=== PATIENT | male | born 1965 | race Caucasian/White ===

== ENCOUNTER 2017-08-22 14:30 | Inpatient (IN) | payer MEDICARE, MEDICAID ==
[~2017-08-22] VITALS: Ht 177.8 cm; Wt 74.6 kg
[~2017-08-22 14:30] MED LIST: AMBIEN 10MG10 MG PO; AMITRIPTYLINE H25 M1 PO; AMITRIPTYLINE H50 M1 PO; AMLOPIDINE PO; AMOXICILLIN 8751 TAB PO; AMOXICILLIN875 MG PO; ARANESP IJ; ASPIRIN 32325 MG/TAB PO; ATIVAN 2MG/ML2 MG/ML IJ; ATIVAN 2MG2 MG PO; ATIVAN2 MG PO; AURYXIA1 GM PO; BACTRIM DS 8001 TAB PO; CATAPRES 0.1MG0.1 MG PO; CATAPRES PO; CATAPRES-T0.3 MG/24 TD; COLACE 100100 MG/CAP PO; COREG 25MG25 MG/TAB PO; COREG25 MG PO; COZAAR 50MG50 MG/TAB PO; COZAAR100 MG PO; DIALYVITE PO; DIOVAN320 MG PO; EPOGEN MU IJ; EPOGEN2000 U/ML IV; FOLIC ACID 11 MG/TA1 PO; FOLIC ACID1 MG PO; FOSRENOL PO; FUROSEMIDE PO; GABAPENTIN100 M1 PO; LASIX 40MG TABL40 MG PO; LASIX 80MG TABL80 MG PO; LEVAQUIN 5500 MG/TA1 PO; METOLAZONE5 MG PO; NEPHROCAP PO; NEURONTIN100 MG/CAP PO; NORCO 325 MG-101 TAB PO; NORCO 325 MG-7.1 TAB PO; NORVASC 10MG10 MG PO; NORVASC10 MG PO; OXYCONTIN 20MG20 MG PO; PERCOCET 325 MG1 TAB PO; PERCOCET 650 MG1 TAB PO; PHENERGAN 25 TA25 MG PO; PHOS LO; PHOS LO PO; PHOSLO667 MG PO; PLAVIX 75MG TAB75 MG PO; PRILOSEC 20MG20 MG PO; PRINIVIL10 MG PO; RENA-VITE1 TAB PO; RENVELA800 MG PO; RITE AID BRAND650 MG PO; ROXICODONE15 MG PO; ROXICODONE30 MG PO; SENSIPAR PO; SENSIPAR30 MG PO; SODIUM BICARB; SODIUM BICARB PO; TYLENOL 500MG500 MG PO; VIA IJ; XALATAN EYE DROPS OD; ZEMPLAR0.002 MG/M IV; ZEMPLAR1 MCG PO; ZOLOFT 100MG100 MG PO; ZOLOFT 50MG50 MG PO; ZOLOFT100 MG PO
[2017-08-22 15:05] VITALS: BP 142/66; PULSE 69; TEMP 97.3
[2017-08-22] MEDS ORDERED: ATIVAN2 MG PO (16:39)
[2017-08-22] MEDS ORDERED: AURYXIA1 GM PO (16:42)
[2017-08-22] MEDS ORDERED: CALPHRON667 MG PO ×2 (16:43→16:44)
[2017-08-22] MEDS ORDERED: PRILOSEC 20MG20 MG PO (16:46)
[2017-08-22] MEDS ORDERED: NEPHROCAP PO (16:46)
[2017-08-22] MEDS ORDERED: ROXICODONE15 MG PO (16:47)
[2017-08-22] MEDS ORDERED: SENNA8.6 MG PO (16:48)
[2017-08-22] MEDS ORDERED: FOLIC ACID 11 MG/TA1 PO (16:49)
[2017-08-22] MEDS ORDERED: ZOFRAN ODT4 MG PO (16:49)
[2017-08-22] MEDS ORDERED: XALATAN EYE DROPS OU (16:50)
[2017-08-22] MEDS ORDERED: SENSIPAR60 MG PO (16:51)
[2017-08-22] MEDS ORDERED: ZOLOFT 100MG100 MG PO (16:52)
[2017-08-22 17:14] LABS: BASO % 0.6 % (0.0-2.0); EOS # 0.1 (0.0-0.7); EOS % 1.7 % (0-4.0); GRAN # 2.8 (1.4-6.5); GRAN % 61.1 % (42.2-75.2); LYMPH % 22.3 % (20.0-51.0); MEAN CELL VOLUME 100 fl (80.0-100.0); MEAN CORPUSCULAR HGB CONC 31 g/dl (33.0-37.0); MONO # 0.6 (0.1-0.6); MONO % 13.9 % (1.7-9.3); PLATELET COUNT 88 K/mm3 (130-400); RED BLOOD COUNT 2.87 M/mm3 (4.20-5.60); WHITE BLOOD COUNT 4.6 K/mm3 (4.8-10.8)
[2017-08-22 17:15] LABS: HEMATOCRIT 28.8 % (42.0-52.0); MEAN CORPUSCULAR HEMOGLOBIN 31 pg (27.0-31.0)
[2017-08-22 17:17] LABS: INR 1.3 (0.8-3.0); PROTHROMBIN TIME 14.1 SECONDS (9.7-12.8)
[2017-08-22 17:19] LABS: PARTIAL THROMBOPLASTIN TIME 43.6 SECONDS (26.0-37.0)
[2017-08-22 17:25] LABS: ADJUSTED CALCIUM 9.4 mg/dL (8.4-10.2); ALBUMIN 2.3 gm/dL (3.5-5.0); BILIRUBIN,TOTAL 0.7 mg/dL (0.0-1.0); POTASSIUM 4.8 mmol/L (3.4-5.0); TOTAL PROTEIN 7.6 gm/dL (6.4-8.2)
[2017-08-22 17:27] LABS: CREATININE, serum 4.33 mg/dL (0.66-1.25)
[2017-08-22] MEDS ORDERED: CARAFATE 1GM1 G PO (18:16)
[2017-08-22 18:27] VITALS: BP 158/75; PULSE 79; TEMP 98.6
[2017-08-22 22:00] VITALS: BP 141/58; PULSE 77; TEMP 99.4
[2017-08-23] VITALS (13 sets, daily range): BP systolic 87–150; BP diastolic 54–86; PULSE 55–84; TEMP 97.3–99.1
[2017-08-23 06:58] LABS: MEAN CELL VOLUME 100 fl (80.0-100.0); MEAN CORPUSCULAR HGB CONC 31 g/dl (33.0-37.0); MEAN PLATELET VOLUME 10.1 fl (7.4-10.4); PLATELET COUNT 94 K/mm3 (130-400); RED BLOOD COUNT 2.81 M/mm3 (4.20-5.60); WHITE BLOOD COUNT 4.7 K/mm3 (4.8-10.8)
[2017-08-23 07:07] LABS: HEMOGLOBIN 8.8 g/dl (13.5-18.0); MEAN CORPUSCULAR HEMOGLOBIN 31 pg (27.0-31.0)
[2017-08-23 07:08] LABS: ALBUMIN 2.2 gm/dL (3.5-5.0); CALCIUM 8.2 mg/dL (8.4-10.2); PHOSPHOROUS 2.6 mg/dL (2.5-4.5)
[2017-08-23 07:14] LABS: CREATININE, serum 4.97 mg/dL (0.66-1.25)
[2017-08-23 16:47] LABS: INFLUENZA A NEGATIVE; INFLUENZA B NEGATIVE
[2017-08-24] VITALS (7 sets, daily range): BP systolic 117–146; BP diastolic 54–66; PULSE 64–77; TEMP 97.7–98.9
[2017-08-24 06:39] LABS: HEMATOCRIT 27.6 % (42.0-52.0); HEMOGLOBIN 8.6 g/dl (13.5-18.0)
[2017-08-25 06:17] VITALS: BP 124/56; PULSE 70; TEMP 97.8
[2017-08-25 07:33] LABS: MEAN CELL VOLUME 101 fl (80.0-100.0); MEAN CORPUSCULAR HGB CONC 31 g/dl (33.0-37.0); MEAN PLATELET VOLUME 9.4 fl (7.4-10.4); PLATELET COUNT 84 K/mm3 (130-400); RED BLOOD COUNT 2.78 M/mm3 (4.20-5.60); WHITE BLOOD COUNT 4.3 K/mm3 (4.8-10.8)
[2017-08-25 07:38] LABS: HEMOGLOBIN 8.7 g/dl (13.5-18.0); MEAN CORPUSCULAR HEMOGLOBIN 31 pg (27.0-31.0)
[2017-08-25 07:45] LABS: ALBUMIN 2.1 gm/dL (3.5-5.0); CALCIUM 7.8 mg/dL (8.4-10.2); PHOSPHOROUS 3.9 mg/dL (2.5-4.5); POTASSIUM 4.8 mmol/L (3.4-5.0)
[2017-08-25 07:56] LABS: CREATININE, serum 5.31 mg/dL (0.66-1.25)
[2017-08-25 09:47] VITALS: BP 117/57; PULSE 69; TEMP 98.9
[2017-08-25 17:15] VITALS: BP 133/61; PULSE 88; TEMP 99.4
[2017-08-25 22:45] VITALS: BP 119/55; PULSE 80; TEMP 99.6
[2017-08-26 02:01] VITALS: BP 137/62; PULSE 80; TEMP 97.9
[2017-08-26 06:39] VITALS: BP 133/56; PULSE 72; TEMP 97.6
[2017-08-26 09:10] VITALS: BP 129/54; PULSE 72; TEMP 98.2
[2017-08-26 14:05] VITALS: BP 137/77; PULSE 70; TEMP 98.1
[2017-08-26 18:38] VITALS: BP 123/55; PULSE 66; TEMP 98.7
[2017-08-26 20:48] VITALS: BP 118/48; PULSE 62; TEMP 98.6
[2017-08-27 03:15] VITALS: BP 130/59; PULSE 70; TEMP 98.9
[2017-08-27 05:41] VITALS: BP 123/65; PULSE 67; TEMP 98.9
[2017-08-27 09:30] VITALS: BP 139/71; PULSE 77; TEMP 97.6
[2017-08-27 12:32] VITALS: BP 119/61; PULSE 71
[2017-08-27 17:32] VITALS: BP 139/64; PULSE 72; TEMP 97.5
[2017-08-27 22:11] VITALS: BP 132/68; PULSE 71; TEMP 98.5
[2017-08-28 05:38] VITALS: BP 140/66; PULSE 70; TEMP 98.3
[2017-08-28 07:04] LABS: HEMATOCRIT 26.7 % (42.0-52.0); HEMOGLOBIN 8.4 g/dl (13.5-18.0); MEAN CELL VOLUME 99 fl (80.0-100.0); MEAN CORPUSCULAR HEMOGLOBIN 31 pg (27.0-31.0); MEAN CORPUSCULAR HGB CONC 32 g/dl (33.0-37.0); MEAN PLATELET VOLUME 9.6 fl (7.4-10.4); PLATELET COUNT 89 K/mm3 (130-400); RED BLOOD COUNT 2.71 M/mm3 (4.20-5.60); WHITE BLOOD COUNT 4.7 K/mm3 (4.8-10.8)
[2017-08-28 07:15] LABS: CALCIUM 7.6 mg/dL (8.4-10.2); PHOSPHOROUS 4.6 mg/dL (2.5-4.5); POTASSIUM 4.9 mmol/L (3.4-5.0)
[2017-08-28 07:36] LABS: CREATININE, serum 6.01 mg/dL (0.66-1.25)
[2017-08-28 14:09] VITALS: BP 140/66; PULSE 76; TEMP 98.6
[2017-08-28 17:19] VITALS: BP 151/65; PULSE 79; TEMP 99.3
[2017-08-28 22:00] VITALS: BP 130/60; PULSE 72; TEMP 98.6
[2017-08-29] VITALS (12 sets, daily range): BP systolic 109–147; BP diastolic 43–66; PULSE 58–70; TEMP 97.5–98.7
[2017-08-29 08:07] LABS: MEAN CELL VOLUME 99 fl (80.0-100.0); MEAN CORPUSCULAR HGB CONC 31 g/dl (33.0-37.0); MEAN PLATELET VOLUME 9.9 fl (7.4-10.4); PLATELET COUNT 93 K/mm3 (130-400); RED BLOOD COUNT 3.17 M/mm3 (4.20-5.60)
[2017-08-29 08:11] LABS: HEMATOCRIT 31.5 % (42.0-52.0); HEMOGLOBIN 9.8 g/dl (13.5-18.0); MEAN CORPUSCULAR HEMOGLOBIN 31 pg (27.0-31.0)
[2017-08-29 08:20] LABS: ALBUMIN 2.3 gm/dL (3.5-5.0); CALCIUM 7.8 mg/dL (8.4-10.2); PHOSPHOROUS 3.7 mg/dL (2.5-4.5); POTASSIUM 4.1 mmol/L (3.4-5.0)
[2017-08-29 08:22] LABS: CREATININE, serum 4.11 mg/dL (0.66-1.25)
[2017-08-29 08:32] LABS: VANCOMYCIN TROUGH 22.3 ug/mL (7.00-20.00)
[2017-08-30 01:51] VITALS: BP 120/59; PULSE 57; TEMP 97.9
[2017-08-30 06:05] VITALS: BP 145/67; PULSE 57; TEMP 97.5
[2017-08-30 07:01] LABS: MEAN CELL VOLUME 100 fl (80.0-100.0); MEAN CORPUSCULAR HGB CONC 31 g/dl (33.0-37.0); MEAN PLATELET VOLUME 10.1 fl (7.4-10.4); PLATELET COUNT 86 K/mm3 (130-400); RED BLOOD COUNT 2.78 M/mm3 (4.20-5.60); WHITE BLOOD COUNT 4.2 K/mm3 (4.8-10.8)
[2017-08-30 07:05] LABS: HEMATOCRIT 27.7 % (42.0-52.0); HEMOGLOBIN 8.7 g/dl (13.5-18.0); MEAN CORPUSCULAR HEMOGLOBIN 31 pg (27.0-31.0)
[2017-08-30 07:06] LABS: ALBUMIN 2.1 gm/dL (3.5-5.0); CALCIUM 7.5 mg/dL (8.4-10.2); POTASSIUM 4.7 mmol/L (3.4-5.0)
[2017-08-30 07:15] LABS: CREATININE, serum 5.07 mg/dL (0.66-1.25)
[2017-08-30 07:22] LABS: PHOSPHOROUS 5.8 mg/dL (2.5-4.5)
[2017-08-30] MEDS ORDERED: VANCOCIN HCL1 GM IV ×2 (10:58→14:49)
[2017-08-30 13:14] VITALS: BP 145/67; PULSE 57; TEMP 97.5
[2017-08-30 14:08] VITALS: BP 145/67; PULSE 57; TEMP 97.5
[2017-09-03] MEDS ORDERED: PRILOSEC 20MG20 MG PO (09:37)
[2017-09-03] MEDS ORDERED: FOLIC ACID 11 MG/TA1 PO (09:38)
== END 2017-08-30 16:00 | DRG 856 ==
LOC: SURG 14:30
PROVIDERS: Internal Medicine Nephrology; Orthopaedic Surgery; Physician Assistant
PROC: 5A1D70Z Performance of Urinary Filtration, Intermittent, Less than 6 Hours Per Day (ICD-10-PCS; 2017-08-23)
PROC: 0QDB0ZZ Extraction of Right Lower Femur, Open Approach (ICD-10-PCS; principal; 2017-08-23 13:15)
PROC: 0QDB0ZZ Extraction of Right Lower Femur, Open Approach (ICD-10-PCS; 2017-08-29)
DX: T81.4XXA Infection following a procedure, initial encounter (principal); N18.6 End stage renal disease; I12.0 Hypertensive chronic kidney disease with stage 5 chronic kidney disease or end stage renal disease; E44.0 Moderate protein-calorie malnutrition; B95.62 Methicillin resistant Staphylococcus aureus infection as the cause of diseases classified elsewhere; S72.451 Displaced supracondylar fracture without intracondylar extension of lower end of right femur; E11.22 Type 2 diabetes mellitus with diabetic chronic kidney disease; Z99.2 Dependence on renal dialysis; D63.1 Anemia in chronic kidney disease; Z89.511 Acquired absence of right leg below knee; E11.42 Type 2 diabetes mellitus with diabetic polyneuropathy; F17.220 Nicotine dependence, chewing tobacco, uncomplicated; E21.2 Other hyperparathyroidism; D89.0 Polyclonal hypergammaglobulinemia
CPT/HCPCS: A9284; J0881; J1100; J1170; J1650; J2270; J2405; J2704; J3010; J3370; J7030; J7050; J7060

== ENCOUNTER 2017-10-25 02:17 | Inpatient (IN) | payer MEDICARE, MEDICAID ==
[~2017-10-25] VITALS: Ht 180.3 cm; Wt 66.5 kg
[~2017-10-25 02:17] MED LIST changes: +CALPHRON667 MG PO; +CARAFATE 1GM1 G PO; +SENNA8.6 MG PO; +SENSIPAR60 MG PO; +VANCOCIN HCL1 GM IV; +XALATAN EYE DROPS OU; +ZOFRAN ODT4 MG PO
[2017-10-25 03:55] LABS: MEAN CELL VOLUME 98 fl (80.0-100.0); MEAN CORPUSCULAR HGB CONC 31 g/dl (33.0-37.0); MEAN PLATELET VOLUME 9.8 fl (7.4-10.4); PLATELET COUNT 70 K/mm3 (130-400); RED BLOOD COUNT 3.07 M/mm3 (4.20-5.60); REDCELL DISTRIBUTION WIDTH-CV 18.4 % (11.5-14.5)
[2017-10-25 03:57] LABS: HEMATOCRIT 30.1 % (42.0-52.0); HEMOGLOBIN 9.4 g/dl (13.5-18.0); MEAN CORPUSCULAR HEMOGLOBIN 31 pg (27.0-31.0)
[2017-10-25 04:00] LABS: INFLUENZA A POSITIVE; INFLUENZA B NEGATIVE
[2017-10-25 04:01] LABS: INR 1.4 (0.8-3.0); PROTHROMBIN TIME 16.8 SECONDS (9.7-12.8)
[2017-10-25 04:04] LABS: PARTIAL THROMBOPLASTIN TIME 39.9 SECONDS (26.0-37.0)
[2017-10-25 04:06] LABS: ALBUMIN 2.7 gm/dL (3.5-5.0); BILIRUBIN,TOTAL 0.7 mg/dL (0.0-1.0); CALCIUM 8.7 mg/dL (8.4-10.2); MAGNESIUM 1.9 mg/dL (1.6-2.3); PHOSPHOROUS 6.9 mg/dL (2.5-4.5); POTASSIUM 3.7 mmol/L (3.4-5.0); TOTAL PROTEIN 8.1 gm/dL (6.4-8.2)
[2017-10-25 04:07] LABS: BAND 2 % (0-10); BASOPHIL 4 % (0-2); EOSINOPHIL 4 % (0-4); LYMPHOCYTE 26 % (20.0-51.0); NEUTROPHILS 56 % (42.0-75.2); ROULEAUX 2+; TARGET CELLS 1+; TOXIC GRANULATION PRESENT
[2017-10-25 04:08] LABS: ANISOCYTOSIS 1+; HYPOCHROMIA 1+; MICROCYTOSIS 1+; POIKILOCYTOSIS 1+; POLYCHROMASIA 1+
[2017-10-25 04:09] LABS: CREATININE, serum 5.55 mg/dL (0.66-1.25)
[2017-10-25 04:17] LABS: TROPONIN-I 0.027 ng/mL (0.000-0.034)
[2017-10-25] MEDS ORDERED: TYLENOL 325MG325 MG PO (04:40)
[2017-10-25] MEDS ORDERED: XALATAN EYE DROPS OU (04:41)
[2017-10-25] MEDS ORDERED: ZITHROMAX500 M2 PO (04:42)
[2017-10-25] MEDS ORDERED: ZOLOFT 100MG100 MG PO (04:43)
[2017-10-25] MEDS ORDERED: ZOFRAN 4MG T4 MG/TAB PO (04:43)
[2017-10-25] MEDS ORDERED: ATIVAN 1MG T1 MG/TAB PO (06:19)
[2017-10-25] MEDS ORDERED: PROTONIX 40MG T40 MG PO (06:23)
[2017-10-25] MEDS ORDERED: DAZIDOX20 MG PO (06:24)
[2017-10-25 07:01] VITALS: BP 117/56; PULSE 88; TEMP 98.7
[2017-10-25 16:40] VITALS: BP 97/46; PULSE 59; TEMP 99
[2017-10-25 21:23] VITALS: BP 101/43; PULSE 71; TEMP 98.2
[2017-10-26 00:02] VITALS: BP 91/41; PULSE 79; TEMP 98.3
[2017-10-26 04:40] VITALS: BP 92/36; PULSE 115; TEMP 98
[2017-10-26 06:36] LABS: MEAN CELL VOLUME 100 fl (80.0-100.0); MEAN CORPUSCULAR HGB CONC 31 g/dl (33.0-37.0); MEAN PLATELET VOLUME 10.3 fl (7.4-10.4); PLATELET COUNT 67 K/mm3 (130-400); RED BLOOD COUNT 3.01 M/mm3 (4.20-5.60); REDCELL DISTRIBUTION WIDTH-CV 18.3 % (11.5-14.5)
[2017-10-26 06:39] LABS: HEMOGLOBIN 9.3 g/dl (13.5-18.0); MEAN CORPUSCULAR HEMOGLOBIN 31 pg (27.0-31.0)
[2017-10-26 06:44] LABS: CALCIUM 8.3 mg/dL (8.4-10.2); POTASSIUM 3.8 mmol/L (3.4-5.0)
[2017-10-26 07:11] LABS: CREATININE, serum 4.26 mg/dL (0.66-1.25)
[2017-10-26 08:22] VITALS: BP 79/37; PULSE 65; TEMP 98.4
[2017-10-26 08:23] LABS: ANISOCYTOSIS 3+; BAND 58 % (0-10); LYMPHOCYTE 19 % (20.0-51.0); METAMYELOCYTE 1 % (0-0); NEUTROPHILS 21 % (42.0-75.2); OVALOCYTES 1+; PLATELET ESTIMATE DECREASED (NORMAL)
[2017-10-26] MEDS ORDERED: VENTOLIN0.09 MG IH ×2 (10:10)
[2017-10-26] MEDS ORDERED: DAZIDOX20 MG PO (10:11)
[2017-10-26] MEDS ORDERED: TAMIFLU30 MG PO (10:11)
== END 2017-10-26 11:25 | DRG 193 ==
LOC: COL.ER 02:17 → MEDICAL 05:04
PROVIDERS: Emergency Medicine; Internal Medicine
PROC: 5A1D70Z Performance of Urinary Filtration, Intermittent, Less than 6 Hours Per Day (ICD-10-PCS; principal; 2017-10-25)
DX: J09.X2 Influenza due to identified novel influenza A virus with other respiratory manifestations (principal); N18.6 End stage renal disease; I12.0 Hypertensive chronic kidney disease with stage 5 chronic kidney disease or end stage renal disease; L03.115 Cellulitis of right lower limb; Z89.611 Acquired absence of right leg above knee; E11.22 Type 2 diabetes mellitus with diabetic chronic kidney disease; Z99.2 Dependence on renal dialysis; D63.1 Anemia in chronic kidney disease; E11.42 Type 2 diabetes mellitus with diabetic polyneuropathy; Z87.891 Personal history of nicotine dependence; G89.29 Other chronic pain; F32.9 Major depressive disorder, single episode, unspecified
CPT/HCPCS: J0692; J3370; J7050

== ENCOUNTER 2017-11-01 13:40 | Inpatient (IN) | payer MEDICARE, MEDICAID ==
[~2017-11-01] VITALS: Ht 180.3 cm; Wt 71.9 kg
[~2017-11-01 13:40] MED LIST changes: +ATIVAN 1MG T1 MG/TAB PO; +DAZIDOX20 MG PO; +PROTONIX 40MG T40 MG PO; +TAMIFLU30 MG PO; +TYLENOL 325MG325 MG PO; +VENTOLIN0.09 MG IH; +ZITHROMAX500 M2 PO; +ZOFRAN 4MG T4 MG/TAB PO
[2017-11-01 17:35] LABS: HEMATOCRIT 23.6 % (42.0-52.0); HEMOGLOBIN 7.5 g/dl (13.5-18.0); INR 1.6 (0.8-3.0); MEAN CELL VOLUME 95 fl (80.0-100.0); MEAN CORPUSCULAR HEMOGLOBIN 30 pg (27.0-31.0); MEAN CORPUSCULAR HGB CONC 32 g/dl (33.0-37.0); MEAN PLATELET VOLUME 10.1 fl (7.4-10.4); PLATELET COUNT 68 K/mm3 (130-400); PROTHROMBIN TIME 18.7 SECONDS (9.7-12.8); RED BLOOD COUNT 2.49 M/mm3 (4.20-5.60); REDCELL DISTRIBUTION WIDTH-CV 18.4 % (11.5-14.5)
[2017-11-01 17:40] VITALS: BP 116/58; PULSE 54; TEMP 97.9
[2017-11-01 17:42] LABS: ANISOCYTOSIS 2+; BAND 2 % (0-10); LYMPHOCYTE 26 % (20.0-51.0); NEUTROPHILS 62 % (42.0-75.2); PLATELET ESTIMATE DECREASED (NORMAL)
[2017-11-01 17:46] LABS: CALCIUM 8.1 mg/dL (8.4-10.2); CREATININE, serum 2.24 mg/dL (0.66-1.25); POTASSIUM 3.3 mmol/L (3.4-5.0)
[2017-11-01] MEDS ORDERED: ELIQUIS 2.5 PO (17:47)
[2017-11-01] MEDS ORDERED: VENTOLIN0.09 MG IH (17:47)
[2017-11-01] MEDS ORDERED: PACERONE100 MG PO (17:48)
[2017-11-01] MEDS ORDERED: PHOS LO (17:49)
[2017-11-01] MEDS ORDERED: NITROSTAT0.4 MG/TAB SL (17:50)
[2017-11-01] MEDS ORDERED: ASPIRIN 81M81 MG/TA2 PO (17:51)
[2017-11-01] MEDS ORDERED: RANEXA 500MG T500 MG PO (17:52)
[2017-11-01] MEDS ORDERED: TOPROL XL 25MG25 MG PO (17:54)
[2017-11-01] MEDS ORDERED: TAMIFLU30 MG PO (17:55)
[2017-11-01] MEDS ORDERED: DAZIDOX20 MG PO (17:57)
[2017-11-01 22:58] LABS: INFLUENZA A NEGATIVE; INFLUENZA B NEGATIVE
[2017-11-02] VITALS (8 sets, daily range): BP systolic 96–121; BP diastolic 50–71; PULSE 47–87; TEMP 97.2–98.2
[2017-11-02 08:10] LABS: MEAN CELL VOLUME 94 fl (80.0-100.0); MEAN CORPUSCULAR HGB CONC 32 g/dl (33.0-37.0); MEAN PLATELET VOLUME 10.2 fl (7.4-10.4); PLATELET COUNT 73 K/mm3 (130-400); RED BLOOD COUNT 2.86 M/mm3 (4.20-5.60); REDCELL DISTRIBUTION WIDTH-CV 19.1 % (11.5-14.5)
[2017-11-02 08:14] LABS: HEMATOCRIT 26.9 % (42.0-52.0); HEMOGLOBIN 8.5 g/dl (13.5-18.0); MEAN CORPUSCULAR HEMOGLOBIN 30 pg (27.0-31.0)
[2017-11-02 08:24] LABS: ALBUMIN 2.5 gm/dL (3.5-5.0); CALCIUM 8.1 mg/dL (8.4-10.2); CREATININE, serum 2.9 mg/dL (0.66-1.25); PHOSPHOROUS 3.6 mg/dL (2.5-4.5); POTASSIUM 3.7 mmol/L (3.4-5.0)
[2017-11-02 11:21] LABS: BAND 26 % (0-10); EOSINOPHIL 8 % (0-4); LYMPHOCYTE 28 % (20.0-51.0); NEUTROPHILS 38 % (42.0-75.2); PLATELET ESTIMATE DECREASED (NORMAL)
[2017-11-02 15:08] LABS: ALBUMIN 2.3 gm/dL (3.5-5.0); BILIRUBIN,TOTAL 0.7 mg/dL (0.0-1.0); CALCIUM 8.1 mg/dL (8.4-10.2); CREATININE, serum 1.72 mg/dL (0.66-1.25); MAGNESIUM 1.9 mg/dL (1.6-2.3); PHOSPHOROUS 2.4 mg/dL (2.5-4.5); POTASSIUM 3.5 mmol/L (3.4-5.0); TOTAL PROTEIN 7.3 gm/dL (6.4-8.2)
[2017-11-02 15:15] LABS: PRE ALBUMIN 4.5 mg/dL (17.6-36.0)
[2017-11-03 00:50] VITALS: BP 127/66; PULSE 63; TEMP 97.4
[2017-11-03 04:40] VITALS: BP 118/58; PULSE 60; TEMP 97.5
[2017-11-03 07:52] VITALS: BP 118/64; PULSE 58; TEMP 98
[2017-11-03 08:04] LABS: EOS # 0.1 (0.0-0.7); EOS % 3.4 % (0-4.0); GRAN # 1.5 (1.4-6.5); GRAN % 51.6 % (42.2-75.2); LYMPH # 0.9 (1.2-3.4); LYMPH % 29.9 % (20.0-51.0); MEAN CELL VOLUME 93 fl (80.0-100.0); MEAN CORPUSCULAR HGB CONC 32 g/dl (33.0-37.0); MEAN PLATELET VOLUME 9.6 fl (7.4-10.4); MONO # 0.4 (0.1-0.6); MONO % 13.4 % (1.7-9.3); PLATELET COUNT 74 K/mm3 (130-400); RED BLOOD COUNT 3.42 M/mm3 (4.20-5.60); REDCELL DISTRIBUTION WIDTH-CV 19.7 % (11.5-14.5)
[2017-11-03 08:05] LABS: HEMATOCRIT 31.8 % (42.0-52.0); HEMOGLOBIN 10.1 g/dl (13.5-18.0); MEAN CORPUSCULAR HEMOGLOBIN 30 pg (27.0-31.0)
[2017-11-03 08:15] LABS: ALBUMIN 2.3 gm/dL (3.5-5.0); CALCIUM 8.3 mg/dL (8.4-10.2); CREATININE, serum 2.61 mg/dL (0.66-1.25); POTASSIUM 3.4 mmol/L (3.4-5.0)
[2017-11-03 11:27] VITALS: BP 132/63; PULSE 59; TEMP 98
[2017-11-03 20:17] VITALS: BP 110/64; PULSE 75
[2017-11-04 00:29] VITALS: BP 133/68; PULSE 65; TEMP 97.7
[2017-11-04 04:39] VITALS: BP 135/71; PULSE 68; TEMP 97.7
[2017-11-04 07:32] LABS: BASO % 0.7 % (0.0-2.0); EOS # 0.1 (0.0-0.7); EOS % 2.2 % (0-4.0); GRAN # 2.6 (1.4-6.5); GRAN % 65.5 % (42.2-75.2); HEMATOCRIT 34.3 % (42.0-52.0); HEMOGLOBIN 10.8 g/dl (13.5-18.0); LYMPH # 0.9 (1.2-3.4); LYMPH % 22.9 % (20.0-51.0); MEAN CELL VOLUME 96 fl (80.0-100.0); MEAN CORPUSCULAR HEMOGLOBIN 30 pg (27.0-31.0); MEAN CORPUSCULAR HGB CONC 32 g/dl (33.0-37.0); MEAN PLATELET VOLUME 10.6 fl (7.4-10.4); MONO # 0.3 (0.1-0.6); MONO % 8.2 % (1.7-9.3); PLATELET COUNT 89 K/mm3 (130-400); RED BLOOD COUNT 3.59 M/mm3 (4.20-5.60); REDCELL DISTRIBUTION WIDTH-CV 20.4 % (11.5-14.5)
[2017-11-04 07:42] LABS: ALBUMIN 2.6 gm/dL (3.5-5.0); CALCIUM 8.7 mg/dL (8.4-10.2); CREATININE, serum 2.52 mg/dL (0.66-1.25); PHOSPHOROUS 2.9 mg/dL (2.5-4.5); POTASSIUM 3.8 mmol/L (3.4-5.0)
[2017-11-04 07:48] LABS: CALCIUM 8.6 mg/dL (8.4-10.2); CREATININE, serum 2.52 mg/dL (0.66-1.25); MAGNESIUM 2.1 mg/dL (1.6-2.3); PHOSPHOROUS 2.8 mg/dL (2.5-4.5); POTASSIUM 3.7 mmol/L (3.4-5.0)
[2017-11-04 08:04] VITALS: BP 118/52; PULSE 64; TEMP 97.7
[2017-11-04 12:02] VITALS: BP 120/66; PULSE 67; TEMP 98.5
[2017-11-04 16:54] VITALS: BP 129/67; PULSE 63; TEMP 97.8
[2017-11-05 02:00] VITALS: BP 127/85; PULSE 65; TEMP 99
[2017-11-05 07:55] LABS: BASO % 0.7 % (0.0-2.0); EOS # 0.1 (0.0-0.7); EOS % 2.9 % (0-4.0); GRAN # 2.4 (1.4-6.5); GRAN % 59.6 % (42.2-75.2); LYMPH # 1.1 (1.2-3.4); LYMPH % 26.5 % (20.0-51.0); MEAN CELL VOLUME 95 fl (80.0-100.0); MEAN CORPUSCULAR HGB CONC 32 g/dl (33.0-37.0); MEAN PLATELET VOLUME 10.2 fl (7.4-10.4); MONO # 0.4 (0.1-0.6); MONO % 9.6 % (1.7-9.3); PLATELET COUNT 74 K/mm3 (130-400); RED BLOOD COUNT 2.97 M/mm3 (4.20-5.60); REDCELL DISTRIBUTION WIDTH-CV 20.3 % (11.5-14.5)
[2017-11-05 07:59] LABS: CALCIUM 8.4 mg/dL (8.4-10.2); CREATININE, serum 3.47 mg/dL (0.66-1.25); MAGNESIUM 2.2 mg/dL (1.6-2.3); PHOSPHOROUS 3.8 mg/dL (2.5-4.5); POTASSIUM 3.8 mmol/L (3.4-5.0)
[2017-11-05 08:01] LABS: ALBUMIN 2.2 gm/dL (3.5-5.0); CALCIUM 8.5 mg/dL (8.4-10.2); CREATININE, serum 3.41 mg/dL (0.66-1.25); PHOSPHOROUS 3.8 mg/dL (2.5-4.5); POTASSIUM 3.8 mmol/L (3.4-5.0)
[2017-11-05 08:03] LABS: HEMATOCRIT 28.1 % (42.0-52.0); HEMOGLOBIN 8.9 g/dl (13.5-18.0); MEAN CORPUSCULAR HEMOGLOBIN 30 pg (27.0-31.0)
[2017-11-05 08:17] VITALS: BP 106/59; PULSE 104; TEMP 97.7
[2017-11-05 12:20] VITALS: BP 100/60; PULSE 55; TEMP 98
[2017-11-05 18:16] VITALS: BP 122/58; PULSE 100; TEMP 97.9
[2017-11-05 19:44] VITALS: BP 105/58; PULSE 59; TEMP 97.4
[2017-11-06 00:33] VITALS: BP 112/57; PULSE 50; TEMP 97.4
[2017-11-06 04:21] VITALS: BP 130/70; BP 98/53; PULSE 56; PULSE 74; TEMP 97.2; TEMP 98.6
[2017-11-06 07:16] LABS: BASO # 0.1 (0.0-0.2); BASO % 1.1 % (0.0-2.0); EOS # 0.1 (0.0-0.7); EOS % 2.9 % (0-4.0); GRAN # 2.7 (1.4-6.5); GRAN % 60.1 % (42.2-75.2); LYMPH # 1.1 (1.2-3.4); LYMPH % 24.2 % (20.0-51.0); MEAN CELL VOLUME 94 fl (80.0-100.0); MEAN CORPUSCULAR HGB CONC 32 g/dl (33.0-37.0); MEAN PLATELET VOLUME 10.1 fl (7.4-10.4); MONO # 0.5 (0.1-0.6); MONO % 11.3 % (1.7-9.3); PLATELET COUNT 75 K/mm3 (130-400); RED BLOOD COUNT 2.92 M/mm3 (4.20-5.60); REDCELL DISTRIBUTION WIDTH-CV 20.5 % (11.5-14.5)
[2017-11-06 07:18] LABS: HEMATOCRIT 27.4 % (42.0-52.0); HEMOGLOBIN 8.8 g/dl (13.5-18.0); MEAN CORPUSCULAR HEMOGLOBIN 30 pg (27.0-31.0)
[2017-11-06 07:52] LABS: ALBUMIN 2.1 gm/dL (3.5-5.0); CALCIUM 8.4 mg/dL (8.4-10.2); MAGNESIUM 2.2 mg/dL (1.6-2.3); PHOSPHOROUS 4.4 mg/dL (2.5-4.5); POTASSIUM 3.9 mmol/L (3.4-5.0)
[2017-11-06 08:02] LABS: CREATININE, serum 4.25 mg/dL (0.66-1.25)
[2017-11-06 11:55] VITALS: BP 84/46; PULSE 60; TEMP 98
[2017-11-06 16:01] VITALS: BP 88/48; PULSE 63; TEMP 98.3
[2017-11-06 20:30] VITALS: BP 116/68; PULSE 58; TEMP 97.6
[2017-11-06 23:50] VITALS: BP 106/67; PULSE 56; TEMP 97.8
[2017-11-07 04:05] VITALS: BP 101/52; PULSE 50; TEMP 97.5
[2017-11-07 07:23] VITALS: BP 108/54; PULSE 55; TEMP 97.7
[2017-11-07 11:25] VITALS: BP 129/58; PULSE 57; TEMP 97.8
[2017-11-07 17:26] VITALS: BP 105/51; PULSE 56; TEMP 97.8
[2017-11-07 20:17] VITALS: BP 126/64; PULSE 89; TEMP 98
[2017-11-08 02:35] VITALS: BP 114/68; PULSE 53; TEMP 97.4
[2017-11-08 07:22] LABS: BASO % 1.1 % (0.0-2.0); EOS # 0.1 (0.0-0.7); EOS % 3.7 % (0-4.0); GRAN % 52.5 % (42.2-75.2); LYMPH # 1.2 (1.2-3.4); LYMPH % 30.8 % (20.0-51.0); MEAN CELL VOLUME 98 fl (80.0-100.0); MEAN CORPUSCULAR HGB CONC 32 g/dl (33.0-37.0); MONO # 0.4 (0.1-0.6); MONO % 11.4 % (1.7-9.3); PLATELET COUNT 90 K/mm3 (130-400); RED BLOOD COUNT 3.03 M/mm3 (4.20-5.60); REDCELL DISTRIBUTION WIDTH-CV 21.8 % (11.5-14.5)
[2017-11-08 07:26] LABS: HEMATOCRIT 29.6 % (42.0-52.0); HEMOGLOBIN 9.4 g/dl (13.5-18.0); MEAN CORPUSCULAR HEMOGLOBIN 31 pg (27.0-31.0)
[2017-11-08 07:31] LABS: ALBUMIN 2.3 gm/dL (3.5-5.0); BILIRUBIN,TOTAL 0.9 mg/dL (0.0-1.0); CALCIUM 8.4 mg/dL (8.4-10.2); MAGNESIUM 2.2 mg/dL (1.6-2.3); PHOSPHOROUS 4.4 mg/dL (2.5-4.5); POTASSIUM 3.9 mmol/L (3.4-5.0); TOTAL PROTEIN 7.2 gm/dL (6.4-8.2)
[2017-11-08 07:35] LABS: CREATININE, serum 4.12 mg/dL (0.66-1.25)
[2017-11-08 07:38] LABS: PRE ALBUMIN 5.3 mg/dL (17.6-36.0)
[2017-11-08 11:07] VITALS: BP 105/53; PULSE 55; TEMP 98
[2017-11-08] MEDS ORDERED: LOPRESSOR 225 MG/TAB PO (11:40)
[2017-11-08] MEDS ORDERED: ZOLOFT 100MG100 MG PO (11:41)
[2017-11-08] MEDS ORDERED: DAZIDOX20 MG PO (11:41)
[2017-11-08] MEDS ORDERED: KRISTALOSE10 GM/PACK PO (11:45)
[2017-11-08 16:33] VITALS: BP 128/70; PULSE 60; TEMP 98.3
[2017-11-08 20:04] VITALS: BP 103/63; PULSE 56; TEMP 97.7
[2017-11-08 23:26] VITALS: BP 132/74; PULSE 58; TEMP 97.7
[2017-11-09 03:05] VITALS: BP 110/59; PULSE 49; TEMP 97.9
[2017-11-09 08:18] VITALS: BP 103/59; PULSE 64; TEMP 97.9
== END 2017-11-09 13:30 | disposition home or self-care (01) | DRG 377 ==
LOC: MEDICAL 13:40
PROVIDERS: Internal Medicine Gastroenterology; Internal Medicine Nephrology
PROC: 0DB68ZX Excision of Stomach, Via Natural or Artificial Opening Endoscopic, Diagnostic (ICD-10-PCS; 2017-11-02)
PROC: 5A1D70Z Performance of Urinary Filtration, Intermittent, Less than 6 Hours Per Day (ICD-10-PCS; 2017-11-02)
PROC: 0DB98ZX Excision of Duodenum, Via Natural or Artificial Opening Endoscopic, Diagnostic (ICD-10-PCS; principal; 2017-11-02 11:45)
PROC: 5A1D70Z Performance of Urinary Filtration, Intermittent, Less than 6 Hours Per Day (ICD-10-PCS; 2017-11-03)
PROC: 0DJD8ZZ Inspection of Lower Intestinal Tract, Via Natural or Artificial Opening Endoscopic (ICD-10-PCS; 2017-11-03)
PROC: 5A1D70Z Performance of Urinary Filtration, Intermittent, Less than 6 Hours Per Day (ICD-10-PCS; 2017-11-06)
PROC: 5A1D70Z Performance of Urinary Filtration, Intermittent, Less than 6 Hours Per Day (ICD-10-PCS; 2017-11-08)
DX: K31.811 Angiodysplasia of stomach and duodenum with bleeding (principal); N18.6 End stage renal disease; E43 Unspecified severe protein-calorie malnutrition; D62 Acute posthemorrhagic anemia; I12.0 Hypertensive chronic kidney disease with stage 5 chronic kidney disease or end stage renal disease; E11.22 Type 2 diabetes mellitus with diabetic chronic kidney disease; Z99.2 Dependence on renal dialysis; E11.42 Type 2 diabetes mellitus with diabetic polyneuropathy; Z89.511 Acquired absence of right leg below knee; Z68.20 Body mass index [BMI] 20.0-20.9, adult; I48.2 Chronic atrial fibrillation; K21.0 Gastro-esophageal reflux disease with esophagitis; D13.1 Benign neoplasm of stomach; K31.9 Disease of stomach and duodenum, unspecified
CPT/HCPCS: J0881; J2704; P9016

== ENCOUNTER 2017-11-19 01:15 | Inpatient (IN) | payer MEDICARE, MEDICAID ==
[~2017-11-19] VITALS: Ht 180.3 cm; Wt 73.1 kg
[~2017-11-19 01:15] MED LIST changes: +ASPIRIN 81M81 MG/TA2 PO; +ELIQUIS 2.5 PO; +KRISTALOSE10 GM/PACK PO; +LOPRESSOR 225 MG/TAB PO; +NITROSTAT0.4 MG/TAB SL; +PACERONE100 MG PO; +RANEXA 500MG T500 MG PO; +TOPROL XL 25MG25 MG PO
[2017-11-19 02:20] LABS: BASO % 0.9 % (0.0-2.0); EOS # 0.1 (0.0-0.7); EOS % 2.1 % (0-4.0); GRAN # 1.5 (1.4-6.5); GRAN % 47.3 % (42.2-75.2); LYMPH # 1.1 (1.2-3.4); LYMPH % 34.4 % (20.0-51.0); MEAN CELL VOLUME 101 fl (80.0-100.0); MEAN CORPUSCULAR HGB CONC 31 g/dl (33.0-37.0); MEAN PLATELET VOLUME 9.9 fl (7.4-10.4); MONO # 0.5 (0.1-0.6); MONO % 14.7 % (1.7-9.3); RED BLOOD COUNT 3.47 M/mm3 (4.20-5.60); REDCELL DISTRIBUTION WIDTH-CV 20.7 % (11.5-14.5)
[2017-11-19 02:21] LABS: INR 1.2 (0.8-3.0); PROTHROMBIN TIME 13.4 SECONDS (9.7-12.8)
[2017-11-19 02:24] LABS: HEMATOCRIT 34.9 % (42.0-52.0); HEMOGLOBIN 10.7 g/dl (13.5-18.0); MEAN CORPUSCULAR HEMOGLOBIN 31 pg (27.0-31.0)
[2017-11-19 02:24] LABS: PARTIAL THROMBOPLASTIN TIME 38.2 SECONDS (26.0-37.0)
[2017-11-19 02:25] LABS: PLATELET COUNT 41 K/mm3 (130-400)
[2017-11-19 02:26] LABS: MAGNESIUM 2.1 mg/dL (1.6-2.3); PHOSPHOROUS 4.4 mg/dL (2.5-4.5)
[2017-11-19 02:32] LABS: ALBUMIN 2.5 gm/dL (3.5-5.0); BILIRUBIN,TOTAL 1.1 mg/dL (0.0-1.0); CALCIUM 8.2 mg/dL (8.4-10.2); POTASSIUM 4.1 mmol/L (3.4-5.0); TOTAL PROTEIN 7.7 gm/dL (6.4-8.2)
[2017-11-19 02:33] LABS: CREATININE, serum 4.01 mg/dL (0.66-1.25)
[2017-11-19] MEDS ORDERED: DAZIDOX10 MG PO (04:40)
[2017-11-19 05:49] VITALS: BP 99/58; PULSE 57; TEMP 97.8
[2017-11-19 10:51] VITALS: BP 103/57; PULSE 57; TEMP 98.1
[2017-11-19 15:35] LABS: PERITONEAL -POLYMORPHONUCLEAR 10.8 % (0-25); PERITONEAL FLUID RBC 0 /mm3 (0-0)
[2017-11-19 15:39] VITALS: BP 103/57; PULSE 57; TEMP 98.2
[2017-11-19 17:29] VITALS: BP 112/53; PULSE 63; TEMP 97.9
[2017-11-19 22:16] VITALS: BP 100/57; PULSE 61; TEMP 98.1
[2017-11-20 01:48] VITALS: BP 94/56; PULSE 63; TEMP 98.1
[2017-11-20 05:26] VITALS: BP 101/57; PULSE 66; TEMP 98
[2017-11-20 06:36] LABS: ALBUMIN 2.3 gm/dL (3.5-5.0)
[2017-11-20 06:41] LABS: HEMATOCRIT 34.3 % (42.0-52.0); HEMOGLOBIN 10.5 g/dl (13.5-18.0)
[2017-11-20 07:13] LABS: CREATININE, serum 5.09 mg/dL (0.66-1.25)
[2017-11-20 11:19] VITALS: BP 101/48; PULSE 70
[2017-11-20 13:50] VITALS: BP 104/46; PULSE 66; TEMP 97.7
== END 2017-11-20 15:07 | disposition home health service (06) | DRG 432 ==
LOC: COL.ER 01:15 → SURG 04:06 → COL.ER 04:06 → SURG 04:07
PROVIDERS: Emergency Medicine; Internal Medicine Nephrology
PROC: 0W9G3ZX Drainage of Peritoneal Cavity, Percutaneous Approach, Diagnostic (ICD-10-PCS; principal; 2017-11-20)
PROC: 5A1D70Z Performance of Urinary Filtration, Intermittent, Less than 6 Hours Per Day (ICD-10-PCS; 2017-11-20)
DX: K70.31 Alcoholic cirrhosis of liver with ascites (principal); N18.6 End stage renal disease; E43 Unspecified severe protein-calorie malnutrition; K72.90 Hepatic failure, unspecified without coma; D63.1 Anemia in chronic kidney disease; I48.0 Paroxysmal atrial fibrillation; B19.20 Unspecified viral hepatitis C without hepatic coma; E11.22 Type 2 diabetes mellitus with diabetic chronic kidney disease; E11.42 Type 2 diabetes mellitus with diabetic polyneuropathy; K82.8 Other specified diseases of gallbladder; G89.29 Other chronic pain; Z79.02 Long term (current) use of antithrombotics/antiplatelets; Z99.2 Dependence on renal dialysis; Z89.511 Acquired absence of right leg below knee
CPT/HCPCS: J0692; J0881; J2916

== ENCOUNTER 2017-12-28 21:00 | Emergency (ER) | payer MEDICARE, MEDICAID ==
[~2017-12-28] VITALS: Ht 180.3 cm; Wt 70.5 kg
[~2017-12-28 21:00] MED LIST changes: +DAZIDOX10 MG PO
[2017-12-28 21:03] VITALS: BP 102/53; PULSE 76; TEMP 97.6
== END 2017-12-28 22:47 | disposition home or self-care (01) ==
LOC: COL.ER 21:00
DX: S30.813A Abrasion of scrotum and testes, initial encounter (principal); K95.89 Other complications of other bariatric procedure; G89.29 Other chronic pain; N18.6 End stage renal disease; K74.60 Unspecified cirrhosis of liver; Z99.2 Dependence on renal dialysis; X58.XXXA Exposure to other specified factors, initial encounter